=== PATIENT | male | born 2000 | race Caucasian/White ===

== ENCOUNTER 2022-10-16 03:24 | Emergency (ER) | payer SELFPAY ==
[~2022-10-16] VITALS: Ht 172.7 cm; Wt 77.3 kg
[2022-10-16 03:24] VITALS: BP 147/96; PULSE 63; TEMP 97.7
[~2022-10-16 03:24] MED LIST: AMOXICILLIN 50500 MG PO; CLEOCIN HCL300 MG PO; NORCO 325 MG-51 TAB PO; ULTRAM 50MG TAB50 MG PO
== END 2022-10-16 03:53 | disposition home or self-care (01) ==
LOC: COL.ER 03:24
DX: F41.9 Anxiety disorder, unspecified (principal); Z79.899 Other long term (current) drug therapy